=== PATIENT | male | born 1985 ===

== ENCOUNTER 2022-06-25 16:48 | Emergency (ER) | payer SELFPAY ==
[~2022-06-25] VITALS: Ht 185.4 cm; Wt 120.0 kg
[2022-06-25 20:20] VITALS: BP 151/99
[2022-06-25] MEDS ORDERED: KETOROLAC TROMETH 30 MG/ML 1ML VIAL IM ONE (20:45)
[2022-06-25] MEDS ORDERED: ACET-1080 PO (20:46)
[2022-06-25] MEDS ORDERED: IBUP600T28 PO (20:46)
[2022-06-25] MEDS ORDERED: SUMA100T15 PO (20:51)
[2022-06-25] MEDS ORDERED: ACETAMINOPHEN 500 MG TAB PO ONE (21:00)
== END 2022-06-25 21:29 | disposition home or self-care (01) ==
LOC: ER 16:48
DX: G43.909 Migraine, unspecified, not intractable, without status migrainosus (principal)
CPT/HCPCS: 70450; 96372; 99284; J1885